=== PATIENT | female | born 1955 | race African-American/Black ===

== ENCOUNTER 2021-07-21 09:12 | Emergency (ER) | payer MEDICARE, MEDICAID ==
[~2021-07-21] VITALS: Ht 167.6 cm; Wt 100.0 kg
[2021-07-21 09:50] LABS: BASOPHILS % 0.2 % (0.0-2.0); EOSINOPHILS % 0.6 % (0.0-5.0); HEMATOCRIT. 47.4 % (36.0-48.0); HEMOGLOBIN. 15.4 g/dL (12.0-16.0); LYMPHOCYTES % 20.8 % (20.0-50.0); MEAN CORPUSCULAR HEMOGLOBIN 26.7 pg (28.0-32.0); MEAN CORPUSCULAR VOLUME 82.1 fL (81.0-99.0); MEAN PLATELET VOLUME 9.7 fl (7.4-10.4); NEUTROPHILS % 69.4 % (40.0-76.0); PLATELET 182 x1000/uL (130-400); RED BLOOD CELL COUNT 5.78 mill/uL (4.2-5.4); RED CELL DISTRIBUTION WIDTH 14.7 % (11.6-14.6)
[2021-07-21 09:56] LABS: CHLORIDE 107 mEq/L (98-107)
[2021-07-21 10:05] LABS: PROTHROMBIN TIME 10.7 sec (9.6-11.0)
[2021-07-21] MEDS ORDERED: IPRATROPIUM BROMIDE (0.02%) 0.5MG/2.5ML NEB HHN STA (10:22)
[2021-07-21] MEDS ORDERED: ALBUTEROL (0.083%) 2.5MG/3ML NEB HHN SCH (10:30)
[2021-07-21] MEDS ORDERED: ASPIRIN 325MG EC TABLET PO ONE (11:45)
[2021-07-21] MEDS ORDERED: ENOXAPARIN 100MG/ML SYR SUBCUT ONE (12:15)
[2021-07-21] MEDS ORDERED: LABETALOL HCL VIAL 20 MG/4 ML VIAL IV ONE (12:45)
[2021-07-21] MEDS ORDERED: ASPIRIN 325MG EC TABLET PO NR (13:30)
[2021-07-21] MEDS ORDERED: MORPHINE SULFATE 4 MG/ML CPJ (NOT FOR IM USE) IV ONE (14:15)
[2021-07-21 20:00] VITALS: BP 154/77
== END 2021-07-21 21:35 | disposition left against medical advice (07) ==
LOC: ER 09:35
DX: I21.3 ST elevation (STEMI) myocardial infarction of unspecified site (principal); I10 Essential (primary) hypertension; Z86.59 Personal history of other mental and behavioral disorders
CPT/HCPCS: 36415; 71045; 80053; 83880; 84484; 85025; 85610; 93005; 94640; 96372; 96374; 96375; 99283; J1650; J3490; 99285

== ENCOUNTER 2022-07-10 18:31 | Emergency (ER) | payer BC, MEDICAID ==
[~2022-07-10] VITALS: Ht 175.3 cm; Wt 150.0 kg
[2022-07-10 18:32] VITALS: BP 0/0
== END 2022-07-10 19:02 ==
LOC: ER 18:31
DX: I46.9 Cardiac arrest, cause unspecified (principal); I10 Essential (primary) hypertension
CPT/HCPCS: 31500; 82962; 92950; 99285